=== PATIENT | male | born 1980 | race African-American/Black ===

== ENCOUNTER 2017-03-24 23:02 | Emergency (ER) | payer SELFPAY ==
[2017-03-24 23:24] VITALS: BMI 20.5
--- NOTE | 2017-03-25 00:09 | PDOC ---
History of Present Illness - History of Present Illness Initial Comments: 03/25/17 00:45 Patient is a 36 year old male with no significant medical hx who is presenting to the ED with complaint of numbness to his right leg since 4 AM yesterday morning. Patient reports waking up in the morning with numbness to his leg that extended from his right foot up to his right thigh. He states that the numbness lasted all day but has resolved since hes been in the ED. The patient also notes feeling weakness to his right leg; he states that his right leg does not feel as 100% as his left" at this time. Denies any pain, trauma, slurred speech , headache, visual changes, loss of consciousness, numbness or tingling to the right upper extremity, or facial droop. <Ericka Mccarthy - Last Filed: 03/25/17 00:45> <Patricio Brown - Last Filed: 03/25/17 01:03> - General Chief Complaint: CVA/TIA Stated Complaint: RIGHT SIDE PAIN Time Seen by Provider: 03/24/17 23:54 Past History <Ericka Mccarthy - Last Filed: 03/25/17 00:45> - Psycho/Social/Smoking Cessation Hx Suicidal Ideation: No Smoking History: Never smoked <Patricio Brown - Last Filed: 03/25/17 01:03> - Past Medical History Allergies/Adverse Reactions: Allergies Allergy/AdvReac Type Severity Reaction Status Date / Time No Known Allergies Allergy Verified 03/24/17 23:21 Home Medications: Ambulatory Orders NK [No Known Home Medication] 03/24/17 Review of Systems - Review of Systems Comments:: 03/25/17 00:46 CONSTITUTIONAL: No fever, no chills, no fatigue EYES: No visual changes ENT: No ear pain, no sore throat CARDIOVASCULAR: No chest pain, no palpitations RESPIRATORY: No cough, no SOB GI: No abdominal pain, no nausea, no vomiting, no constipation, no diarrhea GENITOURINARY: No dysuria, no frequency, no hematuria MUSKULOSKELETAL: No backpain, no joint pain, no myalgias SKIN: No rash NEURO: Numbness and weakness to right leg. No headache <Ericka Mccarthy Last Filed: 03/25/17 00:45> *Physical Exam - Vital Signs Last Vital Signs Temp Pulse Resp BP Pulse Ox 97.3 F L 73 16 143/85 100 03/24/17 23:22 03/24/17 23:22 03/24/17 23:22 03/24/17 23:22 03/24/17 23:22 - Physical Exam Comments: 03/25/17 00:47 CONSTITUTIONAL: Well-appearing; well-nourished; in no apparent distress HEAD: Normocephalic; atraumatic EYES: PERRL; EOM intact ENMT: External appears normal; normal oropharynx NECK: Supple; non-tender; no cervical lymphadenopathy CARD: Normal S1, S2; no murmurs, rubs, or gallops RESP: Normal chest excursion with respiration; breath sounds clear and equal bilaterally; no wheezes, rhonchi, or rales ABD: Soft, non-distended; non-tender; no palpable organomegaly, no palpable hernias EXT: Normal ROM in all four extremities; non-tender to palpation; distal pulses intact SKIN: Warm, dry, no rash NEURO: No focal neurological deficiencies. DTR +2. Cranial nerves II-XII intact. Normal speech. Normal gait. No slurred speech. Motor strength 5/5 to upper and lower extremities. No dysmetria. <Ericka Mccarthy - Last Filed: 03/25/17 00:45> - Vital Signs Last Vital Signs Temp Pulse Resp BP Pulse Ox 97.3 F L 73 16 143/85 100 03/24/17 23:22 03/24/17 23:22 03/24/17 23:22 03/24/17 23:22 03/24/17 23:22 <Patricio Brown - Last Filed: 03/25/17 01:03> Medical Decision Making - Medical Decision Making 03/25/17 01:02 Patient is well-appearing 36-year-old male who presents with atraumatic pins and needles like sensation to the right lower extremity for the past 24 hours that has now completely resolved. In the ER, patient is awake and alert, resting comfortably, with no lower back pain or deformity appreciated on physical evaluation. Motor is noted to be 5 over 5 bilaterally, fine touch and proprioception are intact bilaterally. DTRs are +2 bilaterally. Dorsalis pedis and tibialis posterior are +2 bilaterally. I do not suspect cord compression or cauda equina at this time. I do not suspect vascular compromise as well. Patient will be discharged with PMD follow-up as needed. <Patricio Brown - Last Filed: 03/25/17 01:03> *DC/Admit/Observation/Transfer - Attestations Scribe Attestion: 03/25/17 00:47 Documentation prepared by Ericka Mccarthy, acting as medical hospital sales for Patricio Brown MD. <Ericka Mccarthy - Last Filed: 03/25/17 00:45> - Attestations Physician Attestion: 03/25/17 01:01 The documentation was prepared by the scribe under my direct supervision. I have reviewed the documentation which correctly represents the findings, medical decision-making and critical action taken by me. <Patricio Brown - Last Filed: 03/25/17 01:03> Diagnosis at time of Disposition: Paresthesia and pain of right extremity - Discharge Dispostion Disposition: HOME Condition at time of disposition: Stable - Referrals Referrals: Deniz Garcia DO [Staff Physician] - - Patient Instructions Printed Discharge Instructions: DI for Numbness/tingling
[2017-03-25 04:21] VITALS: BP 138/82; PULSE 68; TEMP 97.7
== END 2017-03-25 01:11 | disposition home or self-care (01) ==
LOC: JER 23:02
DX: R20.8 Other disturbances of skin sensation (principal)
CPT/HCPCS: 99282-25